=== PATIENT | male | born 1945 | race Caucasian/White ===

== ENCOUNTER → 2021-08-29 | Day surgery (SDC) | payer MEDICARE, OTHER ==
[2021-08-25 10:42] LABS: BASOPHILS % 0.4 % (0.0-1.0); HEMATOCRIT 26.9 % (38.2-49.6); LYMPHOCYTES # (AUTO) 1.3 (1.0-3.2); LYMPHOCYTES % 49.6 % (18.0-39.1); MEAN CORPUSCULAR HGB CONC 33.5 g/dL (31-35); MEAN CORPUSCULAR VOLUME 104.7 fL (81-99); MONOCYTES # (AUTO) 0.7 (0.2-0.8); NEUTROPHILS # (AUTO) 0.6 (2.1-6.9); NEUTROPHILS % 23.2 % (38.7-80.0); PLATELET COUNT 107 x10e3/uL (140-360); RED BLOOD COUNT 2.57 x10e6/uL (4.3-5.7); RED CELL DISTRIBUTION WIDTH 14.5 % (11.7-14.4)
[~2021-08-29] MED LIST: ASPIR 8181 MG PO; CLOPIDOGREL75 MG PO; ELIQUIS2.5 MG PO; FARXIGA10 MG PO; FUROSEMIDE40 MG PO; HYDROCODON-ACE1 EAC9 PO; ISOSORBIDE DINI30 MG PO; ISOSORBIDE MONO30 MG PO; METOPROLOL SUCC25 MG PO; PROPOFOL IV EMULSION 50 ML IV ONE; PROTONIX20 MG PO; SOMA350 MG PO; SUCRALFATE1 GM PO; ZETIA10 MG PO
[2021-08-29 11:30] VITALS: BP 110/70
== END | disposition home or self-care (01) ==
LOC: OR 08:03
PROVIDERS: ATTEND Internal Medicine Gastroenterology
DX: D50.9 Iron deficiency anemia, unspecified (principal); K29.50 Unspecified chronic gastritis without bleeding; K21.00 Gastro-esophageal reflux disease with esophagitis, without bleeding; K57.30 Diverticulosis of large intestine without perforation or abscess without bleeding; R19.5 Other fecal abnormalities; R68.81 Early satiety; R63.4 Abnormal weight loss; I25.810 Atherosclerosis of coronary artery bypass graft(s) without angina pectoris; I25.2 Old myocardial infarction; I11.0 Hypertensive heart disease with heart failure; I50.9 Heart failure, unspecified; F17.200 Nicotine dependence, unspecified, uncomplicated; Z88.2 Allergy status to sulfonamides; Z91.048 Other nonmedicinal substance allergy status; Z01.810 Encounter for preprocedural cardiovascular examination; Z01.812 Encounter for preprocedural laboratory examination; Z20.822 Contact with and (suspected) exposure to COVID-19; Z79.02 Long term (current) use of antithrombotics/antiplatelets; Z79.82 Long term (current) use of aspirin; Z79.899 Other long term (current) drug therapy; Z95.1 Presence of aortocoronary bypass graft; Z95.810 Presence of automatic (implantable) cardiac defibrillator
CPT/HCPCS: 36415; 43239; 45378; 85025; 88305; 93005; J2704; U0002; 88342

== ENCOUNTER → 2021-09-16 | Outpatient (CLI) | payer MEDICARE, OTHER ==
[~2021-09-16] MED LIST changes: -PROPOFOL IV EMULSION 50 ML IV ONE
== END ==
LOC: DX 08:51
PROVIDERS: ATTEND Internal Medicine Gastroenterology
DX: K57.30 Diverticulosis of large intestine without perforation or abscess without bleeding (principal)
CPT/HCPCS: 74270

== ENCOUNTER 2022-06-19 13:09 | Outpatient (RCR) | payer MEDICARE, OTHER ==
[~2022-06-19 13:09] MED LIST changes: +ARANESP; +DOXYCYCLINE HYCLATE PO; +K-DUR10 MEQ PO; +LEVOCETIRIZINE D5 MG PO; +LEXAPRO10 MG PO; +LIDOCAINE VISC 2% SOLN 15 ML UDC ONE; +MINERAL OIL/PETROLAT/GLYCERI 6OZ BTL ONE; +MONTELUKAST SOD10 MG PO; +MUPIROCIN22 GM TOP
== END 2022-06-20 ==
LOC: WCC 13:09
PROVIDERS: ATTEND Internal Medicine Infectious Disease
DX: S81.802A Unspecified open wound, left lower leg, initial encounter (principal); I77.74 Dissection of vertebral artery; L03.818 Cellulitis of other sites; I87.312 Chronic venous hypertension (idiopathic) with ulcer of left lower extremity; I87.2 Venous insufficiency (chronic) (peripheral); L97.821 Non-pressure chronic ulcer of other part of left lower leg limited to breakdown of skin; R60.0 Localized edema; I10 Essential (primary) hypertension; E78.5 Hyperlipidemia, unspecified; I48.91 Unspecified atrial fibrillation; F32.9 Major depressive disorder, single episode, unspecified